=== PATIENT | female | born 2000 | race Caucasian/White ===

== ENCOUNTER → 2019-10-16 11:44 | Outpatient (CLI) | payer OTHER, SELFPAY ==
--- NOTE | 2019-10-16 11:55 | XR_ITS ---
PROCEDURE: XR THORACIC SPINE 3V CLINICAL INDICATION: ACUTE THORACIC MIDLINE BACK PAIN COMPARISON: No exams were available for comparison FINDINGS: There is no acute fracture dislocation or destructive lesion. The disc space heights are relatively preserved. IMPRESSION: No acute findings. Dictated by: Heraclio Chung 10/16/2019 13:30 Electronically signed by Heraclio Chung in [facility] 10/16/2019 13:30
[2019-10-16 12:51] LABS: Basophils # 0.1 K/mm3 (0-0.2); Basophils % 0.4 % (0.1-2.0); Eosinophils # 0.2 K/mm3 (0.0-0.4); Eosinophils % 1.8 % (0.1-12.0); Hematocrit 43.1 % (37.0-47.0); Hemoglobin 13.8 g/dL (12.2-16.2); Lymphocytes # 2.1 K/mm3 (0.7-4.5); Lymphocytes % 17.5 % (10-50); Mean Corpuscular HGB Conc 32.1 g/dL (31.8-35.4); Mean Corpuscular Hemoglobin 27.7 pg (27.0-31.2); Mean Corpuscular Volume 86.4 fl (81-99); Mean Platelet Volume 8.2 fl (7.4-10.4); Monocytes # 0.3 K/mm3 (0.1-1.0); Monocytes % 2.5 % (1.7-9.3); Neutrophils # 9.4 K/mm3 (1.8-7.8); Neutrophils % 77.8 % (37.0-80.0); Platelet Count 303 K/mm3 (142-424); Red Blood Count 4.99 M/mm3 (4.20-5.40); Red Cell Distribution Width 13.4 % (11.5-17.5)
[2019-10-16 14:44] LABS: Chloride 104 mmol/L (98-107)
[2019-10-16 14:45] LABS: Potassium 4.4 mmoL/L (3.5-5.1); Sodium 136 mmol/L (136-145)
[2019-10-16 14:48] LABS: Alanine Aminotransferase 9 U/L (12-78); Albumin Level 4.3 g/dl (3.5-5.0); Albumin/Globulin Ratio 1.4 (1.1-1.8); Alkaline Phosphatase 82 U/L (38-126); Anion Gap 16.4 mEq/L (5-15); Aspartate Amino Transferase 19 U/L (14-36); Bilirubin,Total 0.5 mg/dl (0.2-1.3); Blood Urea Nitrogen 8 mg/dl (7-17); Carbon Dioxide 20 mmol/L (22.0-30.0); Estimated Glomerular Filt Rate 127 ml/min (>60); GFR (African American) 154 ML/MIN (>60); Globulin 3.1 g/dL (1.3-3.2); Glucose 75 mg/dl (74-100); Total Protein,Serum 7.4 g/dl (6.3-8.2)
[2019-10-16 15:16] LABS: Thyroid Stimulating Hormone 0.49 uIU/mL (0.465-4.68)
[2019-10-17 08:45] LABS: Vitamin D 25 Hydroxy 31.8 ng/mL (30.0-100.0)
[2019-10-17 16:05] LABS: Vitamin B12 239 pg/mL (232-1245)
== END ==
PROVIDERS: PCP Nurse Practitioner Family; Visit Provider Nurse Practitioner Family
DX: M54.6 Pain in thoracic spine (principal); R53.83 Other fatigue
CPT/HCPCS: 36415; 72072; 80053; 82607; 82652; 84443; 85025

== ENCOUNTER → 2020-04-29 15:31 | Outpatient (CLI) | payer OTHER, SELFPAY ==
--- NOTE | 2020-04-29 15:48 | XR_ITS ---
PROCEDURE: XR CHEST 2V CLINICAL HISTORY: SOB COMPARISON: CR CXR CHEST(2 VIEWS-NOT PORTABLE) from 08/26/2012 CR CXR CHEST(2 VIEWS-NOT PORTABLE) from 02/10/2017 FINDINGS: The cardiomediastinal silhouette and pulmonary vascularity are within normal limits. The lungs are clear without infiltrates, suspicious nodules, or pleural effusions. No acute bony abnormalities. IMPRESSION: No acute findings. Dictated by: Luis Alberto Grant MD 04/29/2020 16:14 Luis Alberto Grant MD in [facility] 04/29/2020 16:14
[2020-04-29 16:00] LABS: Basophils % 0.3 % (0.1-2.0); Eosinophils # 0.5 K/mm3 (0.0-0.4); Eosinophils % 4.1 % (0.1-12.0); Hematocrit 39.3 % (37.0-47.0); Hemoglobin 13.9 g/dL (12.2-16.2); Lymphocytes # 4.4 K/mm3 (0.7-4.5); Lymphocytes % 33.7 % (10-50); Mean Corpuscular HGB Conc 35.3 g/dL (31.8-35.4); Mean Corpuscular Hemoglobin 29.9 pg (27.0-31.2); Mean Corpuscular Volume 84.7 fl (81-99); Mean Platelet Volume 8.3 fl (7.4-10.4); Monocytes # 0.3 K/mm3 (0.1-1.0); Monocytes % 2.2 % (1.7-9.3); Neutrophils # 7.8 K/mm3 (1.8-7.8); Neutrophils % 59.7 % (37.0-80.0); Platelet Count 250 K/mm3 (142-424); Red Blood Count 4.64 M/mm3 (4.20-5.40); Red Cell Distribution Width 12.7 % (11.5-17.5); White Blood Count 13.1 K/mm3 (4.8-10.8)
[2020-04-29 16:37] LABS: Chloride 109 mmol/L (98-107); Potassium 4.2 mmoL/L (3.5-5.1); Sodium 140 mmol/L (136-145)
[2020-04-29 16:40] LABS: Alanine Aminotransferase 15 U/L (12-78); Albumin/Globulin Ratio 1.4 (1.1-1.8); Alkaline Phosphatase 74 U/L (38-126); Anion Gap 16.2 mEq/L (5-15); Aspartate Amino Transferase 19 U/L (14-36); Bilirubin,Total 0.4 mg/dl (0.2-1.3); Blood Urea Nitrogen 7 mg/dl (7-17); Calcium 10.1 mg/dl (8.4-10.2); Carbon Dioxide 19 mmol/L (22.0-30.0); Estimated Glomerular Filt Rate 156 ml/min (>60); GFR (African American) 188 ML/MIN (>60); Globulin 2.8 g/dL (1.3-3.2); Glucose 117 mg/dl (74-100); Total Protein,Serum 6.8 g/dl (6.3-8.2)
[2020-04-29 16:46] LABS: C-Reactive Protein 11.3 mg/L (0-4)
[2020-04-29 16:57] LABS: Free T4 (Free Thyroxine) 1.05 ng/dl (0.78-2.19)
[2020-04-29 16:58] LABS: 25-OH Vitamin D, Total 47.2 ng/mL (30-100)
[2020-04-29 17:12] LABS: Thyroid Stimulating Hormone 0.71 uIU/mL (0.465-4.68)
[2020-04-29 18:10] LABS: Vitamin B12 259 pg/mL (239-931)
[2020-05-11 11:46] LABS: Antinuclear Antibodies (ANA) Negative
== END ==
PROVIDERS: PCP Nurse Practitioner Family; Visit Provider Nurse Practitioner Family
DX: R06.02 Shortness of breath (principal); R53.83 Other fatigue; R20.2 Paresthesia of skin
CPT/HCPCS: 36415; 71046; 80053; 82306; 82607; 83735; 84439; 84443; 85025; 86038; 86140

== ENCOUNTER → 2021-02-11 12:39 | Outpatient (CLI) | payer OTHER, SELFPAY ==
--- NOTE | 2021-02-11 | XR_ITS ---
PROCEDURE INFORMATION: Exam: XR Chest Exam date and time: 02/11/2021 12:00 AM Age: 20 years old Clinical indication: Right-sided; Patient HX: Right sided chest pain---. Non-smoker--- TECHNIQUE: Imaging protocol: XR of the chest. Views: 2 views. COMPARISON: CR XR CHEST 2V 04/29/2020 3:55 PM FINDINGS: Lungs: Unremarkable. No consolidation. Pleural spaces: Unremarkable. No pleural effusion. No pneumothorax. Heart/Mediastinum: Unremarkable. No cardiomegaly. Bones/joints: Unremarkable. IMPRESSION: No acute findings.
== END ==
PROVIDERS: PCP Nurse Practitioner Family; Visit Provider Nurse Practitioner Family
DX: R07.9 Chest pain, unspecified (principal)
CPT/HCPCS: 71046

== ENCOUNTER 2021-09-30 09:07 | Emergency (ER) | payer BC, SELFPAY ==
[2021-09-30 09:10] VITALS: BP 151/86; PULSE 109; RESP 18; TEMP 38.3; O2SAT 99; BMI 34.2
[2021-09-30 09:40] LABS: UTC Influenza A Antigen Negative (Negative); UTC Influenza B Antigen Negative (Negative)
--- NOTE | 2021-09-30 09:40 | HMH.EDUTC ---
[facility] Disposition Clinical Impression: Strep pharyngitis Disposition: Home, Self-Care Condition on Discharge: Good Instructions: DI for Strep Throat Additional Instructions: Start antibiotics today be sure to take it as ordered with the full length of time although you should start feeling better in 24-48 hours. Change toothbrush and toothpaste 24-48 hours after starting antibiotics Tylenol or Motrin as needed for fever or pain Encourage fluids, water, Gatorade, Powerade, try cold fluids, popsicles, ice cream will make it feel better You are contagious for 24 hours. Avoid kissing anyone, no eating or drinking after anyone. You are contagious. Follow-up the ER for new or worsening symptoms or no noticeable improvement over the next 24-48 hours. Follow-up with PCP this week. Prescriptions: Azithromycin [Zithromax 250mg tab] 250 mg PO DIRECTED #6 tab Prescription Printed Referrals: Gloria Toscano MD [Primary Care Provider] - Time of Disposition: 09:46 Medical Decision Making - Ozzy Inquiry Pt receiving controlled substance: No Vital Signs: 09/30/21 09:10 Temperature 100.9 F H Temperature Source Oral Pulse Rate [Left Brachial] 109 H Respiratory Rate 18 Blood Pressure [Left Arm] 151/86 H Blood Pressure Mean [Left Arm] 107 Blood Pressure Source [Left Arm] Automatic Cuff Blood Pressure Position [Left Arm] Sitting 02 Sat by Pulse Oximetry 99 Oxygen Delivery Method Room Air - Lab Data Lab Results 09/30/21 09:24: Influenza Type A Ag Negative, Influenza Type B Ag Negative Orders (Tests/Meds): ORDERS Category Date Time Status Covid-19 Nasal PCR ([facility]) Routine Lab 09/30/21 09:24 Received Rapid Strep Scrn Group A [Strep Scrn Group A (Rapid)] Lab 09/30/21 09:24 Received Stat [facility] HPI - General Chief complaint: Urgent Treatment Center Stated complaint: body aches, h/a Time Seen by Provider: 09/30/21 09:40 Mode of Arrival: Ambulatory Source of Information: Patient Limitations: No Limitations Description of Symptoms (Recalled from Triage Doc. by RN): PATIENT C/O FEVER, BODY ACHES, SORE THROAT, AND BILATERAL EAR PAIN SINCE YESTERDAY HEENT Symptoms (Recalled from RN notes): Yes Resp Symptoms (Recalled from RN notes): No Skin Symptoms (Recalled from RN notes): No MS Symptoms (Recalled from RN notes): No Functional Status (Recalled from RN notes): WNL - History of Present Illness Provider Complaint: 21 yr old female presents for sore throat,fever, body aches and shaista ear pain since yesterday. no ill contacts - Related Data Home Medications Medication Instructions Recorded Confirmed norethindrone 1.5 mg-ethinyl 1 tab PO DAILY 11/09/19 09/30/21 estradiol 30 mcg(21)/iron 75 mg(7) tablet Previous Rx's Medication Instructions Recorded Azithromycin [Zithromax 250mg 250 mg PO DIRECTED #6 tab 09/30/21 tab] Allergies Allergy/AdvReac Type Severity Reaction Status Date / Time No Known Allergies Allergy Verified 09/30/21 09:40 - Worker's Comp Is this a Worker's Comp case?: No [facility] History - Hepatitis A Screen Drug use history?: No High risk sexual behaviors?: No History of sexually transmitted infection?: No Currently employed?: No Childcare worker?: No Do you have indoor plumbing?: Yes Do you have electricity?: Yes Attestation statement:: This patient has been screened for Hepatitis A risk factors. I have reviewed the patient's past medical history: Yes Laterality Cases: Bilateral: Tonsillectomy, Total Hip Replacement - Social History Smoking Status: Current every day smoker # Packs/Day (cigarettes): 1 Alcohol Intake: never Substance Use Type: denies use Occupational Status: other ROS Obtained: Yes Systems reviewed as appropriate & no additional complaints - Constitutional Constitutional: Reports system reviewed and no additional complaints, except as docu, Reports body ache, Reports fever(s) - Eyes Eyes: Reports system review
[2021-09-30 09:42] LABS: Strep Scrn Group A (Rapid) Negative (Negative)
[2021-09-30 09:45] VITALS: BP 151/86; PULSE 109; RESP 18; TEMP 38.3; O2SAT 99
== END 2021-09-30 09:53 | disposition home or self-care (01) ==
PROVIDERS: Emergency Provider Nurse Practitioner Family; PCP Family Medicine
DX: J02.0 Streptococcal pharyngitis (principal); F17.210 Nicotine dependence, cigarettes, uncomplicated; U07.1 COVID-19
CPT/HCPCS: 87430; 87804; 99203; C9803; G0463; U0003; U0005

== ENCOUNTER → 2023-05-24 11:57 | Outpatient (CLI) | payer BC, SELFPAY ==
--- NOTE | 2023-05-24 12:04 | XR_ITS ---
FINAL REPORT CLINICAL HISTORY: intermittent sternal chest pain COMPARISON: 02/11/2021 FINDINGS: PA and lateral views of the chest were obtained. The cardiac and mediastinal silhouettes are within normal limits. The lungs are clear. There is no pleural effusion or pneumothorax. No acute osseous abnormality is identified. IMPRESSION: No radiographic evidence of acute cardiac or pulmonary disease. Reviewed, Interpreted and Dictated by Zee Jacques MD Transcribed by Rachelle Nixon Authenticated and [facility]
== END ==
PROVIDERS: PCP Nurse Practitioner Family; Visit Provider Nurse Practitioner Family
DX: J45.909 Unspecified asthma, uncomplicated (principal); R07.89 Other chest pain; J82.83 Eosinophilic asthma
CPT/HCPCS: 71046

== ENCOUNTER 2023-08-28 13:36 | Outpatient (CLI) | payer BC, SELFPAY ==
[2023-08-28 12:56] LABS: Basophils # 0.1 K/mm3 (0-0.2); Basophils % 0.7 % (0.1-2.0); Eosinophils # 0.2 K/mm3 (0.0-0.4); Eosinophils % 2.1 % (0.1-12.0); Hematocrit 45.6 % (37.0-47.0); Hemoglobin 15.3 g/dL (12.2-16.2); Lymphocytes # 2.8 K/mm3 (0.7-4.5); Lymphocytes % 31.2 % (10-50); Mean Corpuscular HGB Conc 33.5 g/dL (31.8-35.4); Mean Corpuscular Hemoglobin 30.6 pg (27.0-31.2); Mean Corpuscular Volume 91.3 fl (81-99); Mean Platelet Volume 9.3 fl (7.4-10.4); Monocytes # 0.3 K/mm3 (0.1-1.0); Monocytes % 3.4 % (1.7-9.3); Neutrophils # 5.6 K/mm3 (1.8-7.8); Neutrophils % 62.7 % (37.0-80.0); Platelet Count 242 K/mm3 (142-424); Red Cell Distribution Width 12.8 % (11.5-17.5); White Blood Count 8.8 K/mm3 (4.8-10.8)
[2023-08-28 13:17] LABS: Alanine Aminotransferase 33 U/L (12-78); Albumin Level 4.2 g/dl (3.5-5.0); Albumin/Globulin Ratio 1.5 (1.1-1.8); Alkaline Phosphatase 67 U/L (38-126); Anion Gap 12.9 mEq/L (5-15); Aspartate Amino Transferase 35 U/L (14-36); Bilirubin,Total 0.5 mg/dl (0.2-1.3); Blood Urea Nitrogen 7 mg/dl (7-17); Calcium 9.2 mg/dl (8.4-10.2); Carbon Dioxide 18 mmol/L (22.0-30.0); Chloride 108 mmol/L (98-107); Chol/HDL Ratio 3.8 (1-3.5); Cholesterol 240 mg/dl (140-200); Estimated Glomerular Filt Rate 123 ml/min (>60); GFR (African American) 149 ML/MIN (>60); Globulin 2.8 g/dL (1.3-3.2); Glucose 128 mg/dl (74-100); HDL Cholesterol 63 mg/dl (40-60); Magnesium 1.9 mg/dl (1.6-2.3); Potassium 3.9 mmoL/L (3.5-5.1); Sodium 135 mmol/L (136-145); Triglycerides 87 mg/dl (30-150); VLDL Cholesterol 17 mg/dL (0-40)
[2023-08-28 13:29] LABS: C-Reactive Protein 5.3 mg/L (0-4); Direct LDL Cholesterol 145.68 mg/dL (100-129)
[2023-08-28 13:40] LABS: 25-OH Vitamin D, Total 46.9 ng/mL (30-100)
[2023-08-28 13:48] LABS: Thyroid Stimulating Hormone 0.44 uIU/mL (0.465-4.68)
== END 2023-08-28 23:59 ==
PROVIDERS: PCP Nurse Practitioner Family; Visit Provider Nurse Practitioner Family
DX: R07.89 Other chest pain (principal); R79.89 Other specified abnormal findings of blood chemistry; E66.9 Obesity, unspecified; Z68.34 Body mass index [BMI] 34.0-34.9, adult; Z79.899 Other long term (current) drug therapy
CPT/HCPCS: 80053; 80061; 82306; 83735; 84443; 85025; 86140

== ENCOUNTER 2023-10-15 15:01 | Outpatient (CLI) | payer BC, SELFPAY ==
[2023-10-15 15:02] LABS: Coronavirus 19, PCR Not Detected (NotDetected); Influenza A, PCR Not Detected (NotDetected); Influenza B, PCR Not Detected (NotDetected)
== END 2023-10-15 23:59 ==
LOC: LAB.DROPOF 15:02
PROVIDERS: PCP Nurse Practitioner Family; Visit Provider Nurse Practitioner Family
DX: R05.1 Acute cough (principal); R51.9 Headache, unspecified; H92.01 Otalgia, right ear; R09.89 Other specified symptoms and signs involving the circulatory and respiratory systems
CPT/HCPCS: 87636

== ENCOUNTER 2023-11-21 10:04 | Outpatient (CLI) | payer BC, SELFPAY | END 2023-11-21 23:59 | LOC: RT 10:05 | PROVIDERS: PCP Nurse Practitioner Family; Visit Provider Physician Assistant | DX: R00.2 Palpitations (principal); R55 Syncope and collapse; R53.83 Other fatigue; R40.0 Somnolence; Z82.49 Family history of ischemic heart disease and other diseases of the circulatory system | CPT/HCPCS: 93270 ==

== ENCOUNTER 2023-12-06 10:52 | Outpatient (CLI) | payer BC, SELFPAY ==
--- NOTE | 2023-12-06 10:52 | CA_ITS ---
APPROVED REPORT EXAM: Comprehensive 2D, Doppler, and color-flow Echocardiogram [employer]: Rupal Pizarro CRT Ht: 5 ft 5 in Wt: 214lbs BSA: 2.04 BP: 133/84 mmHg Indications: Palpitations, SMOKER, FAMILY HX, PRE SYNCOPE 2D Dimensions LA Volume 30.00 mL LA Volume Index 14.40 mL/m2 (M/F) 16-34 M-Mode Dimensions RVDd 2.44 cm (0.9-2.6) LA Diam 2.94 cm (1.9-4.0) LVDd 4.93 cm (3.5-5.7) LVDs 3.54 cm (3.5-5.7) IVSd 1.10 cm (0.6-1.1) PWd 0.81 cm (0.6-1.1) EF (Teich) 54.30% FS 28.20% EDV (Teich) 114.40 mL TAPSE 2.74 (<1.7) ESV (Teich) 52.30 mL LV Diastology E Decel Time 183 (160-240 msec) E/A Ratio 1.73 MED A' 7.60 cm/s LAT A' 8.00 cm/s Aortic Valve AO Peak GR. 9.30 mmHg Mitral Valve MV E Max Raffaele. 104.0 (40-130 cm/s) MV A Velocity 60.0 (40-130 cm/s) E/A Ratio 1.73 MV PHT 54.0 ms Pulmonary Valve PV Peak Velocity 86.0 (50-150 cm/s) Tricuspid Valve TR P. Velocity 202.00 cm/s RAP Estimate 10.00 mmHg RVSP 26.40 mmHg Left Ventricle The left ventricle is normal size. The left ventricular systolic function is normal. The left ventricular ejection fraction is within the normal range. There is normal left ventricular wall thickness. There is normal LV segmental wall motion. The left ventricular diastolic function is normal. LVEF is 55%. Right Ventricle The right ventricle is normal size. The right ventricular systolic function is normal. Atria The left atrium size is normal. The right atrium size is normal. There is no Doppler evidence of interatrial shunt. Aortic Valve The aortic valve opens well. There is no aortic valvular stenosis. No aortic regurgitation is present. Mitral Valve The mitral valve is normal in structure. No evidence of mitral valve stenosis. There is no mitral valve regurgitation noted. Tricuspid Valve The tricuspid valve leaflets are thin and pliable. Trace tricuspid regurgitation. There is insufficient TR jet to estimate RVSP. Pulmonic Valve The pulmonary valve is normal in structure. Trace pulmonic regurgitation. Great Vessels The aortic root is normal in size. The ascending aorta is not well visualized. IVC is normal in size and collapses >50% with inspiration. Pericardium There is no pericardial effusion. Other Information Study Quality: Fair Conclusion Normal biventricular systolic function. No significant valvular stenosis or regurgitation. Electronically signed by : Conchita Vyas MD 12/09/2023 13:17:39
== END 2023-12-06 23:59 ==
LOC: RT 10:52
PROVIDERS: PCP Nurse Practitioner Family; Visit Provider Physician Assistant
DX: R55 Syncope and collapse (principal); R00.2 Palpitations; R53.83 Other fatigue; R40.0 Somnolence; Z82.49 Family history of ischemic heart disease and other diseases of the circulatory system
CPT/HCPCS: 93306

== ENCOUNTER 2024-03-13 10:23 | Outpatient (CLI) | payer BC, SELFPAY ==
[2024-03-13 11:01] LABS: Basophils # 0.1 K/mm3 (0-0.2); Basophils % 1.5 % (0.1-2.0); Eosinophils # 0.4 K/mm3 (0.0-0.4); Hematocrit 46.1 % (37.0-47.0); Hemoglobin 14.9 g/dL (12.2-16.2); Lymphocytes % 34.8 % (10-50); Mean Corpuscular HGB Conc 32.4 g/dL (31.8-35.4); Mean Corpuscular Hemoglobin 29.4 pg (27.0-31.2); Mean Corpuscular Volume 90.9 fl (81-99); Mean Platelet Volume 8.4 fl (7.4-10.4); Monocytes # 0.3 K/mm3 (0.1-1.0); Monocytes % 3.2 % (1.7-9.3); Neutrophils # 4.9 K/mm3 (1.8-7.8); Neutrophils % 56.5 % (37.0-80.0); Platelet Count 239 K/mm3 (142-424); Red Blood Count 5.07 M/mm3 (4.20-5.40); Red Cell Distribution Width 13.3 % (11.5-17.5); White Blood Count 8.6 K/mm3 (4.8-10.8)
[2024-03-13 11:45] LABS: Magnesium 1.9 mg/dl (1.6-2.3)
[2024-03-13 12:03] LABS: T4 (Thyroxine) 12.6 ug/dl (5.53-11.0)
[2024-03-13 12:17] LABS: Thyroid Stimulating Hormone 0.52 uIU/mL (0.465-4.68)
[2024-03-13 12:21] LABS: Ferritin 86.9 ng/ml (6.24-137)
[2024-03-14 10:23] LABS: Thyroid Peroxidase Antibodies 10 IU/mL (0-34); Triiodothyronine (T3) Free 3.4 pg/mL (2.0-4.4)
[2024-03-16 15:10] LABS: Thyroglobulin Level <1.0 IU/mL (0.0-0.9)
[2024-03-17 13:14] LABS: Lyme B. burgdorferi PCR Blood Negative (Negative)
== END 2024-03-13 23:59 | disposition home or self-care (01) ==
LOC: LAB.DROPOF 10:23
PROVIDERS: PCP Nurse Practitioner Family; Visit Provider Nurse Practitioner Family
DX: R53.83 Other fatigue (principal); R07.89 Other chest pain; R06.02 Shortness of breath
CPT/HCPCS: 82728; 83735; 84436; 84443; 84481; 85025; 86376; 86800; 87476

== ENCOUNTER 2024-11-26 14:11 | Outpatient (CLI) | payer BC, SELFPAY ==
[2024-11-26 16:05] LABS: Erythrocyte Sedimentation Rate 16 mm/hr (0-20)
[2024-11-26 16:11] LABS: Alanine Aminotransferase 15 U/L (12-78); Albumin/Globulin Ratio 1.5 (1.1-1.8); Alkaline Phosphatase 70 U/L (38-126); Anion Gap 13.5 mEq/L (5-15); Aspartate Amino Transferase 20 U/L (14-36); Bilirubin,Total 0.4 mg/dl (0.2-1.3); Blood Urea Nitrogen 16 mg/dl (7-17); Calcium 9.4 mg/dl (8.4-10.2); Carbon Dioxide 24 mmol/L (22.0-30.0); Chloride 104 mmol/L (98-107); Estimated Glomerular Filt Rate 102 ml/min (>60); GFR (African American) 123 ML/MIN (>60); Globulin 2.7 g/dL (1.3-3.2); Glucose 76 mg/dl (74-100); Potassium 4.5 mmoL/L (3.5-5.1); Sodium 137 mmol/L (136-145); Total Protein,Serum 6.7 g/dl (6.3-8.2); Uric Acid 4.3 mg/dl (2.5-6.2)
[2024-11-26 16:27] LABS: 25-OH Vitamin D, Total 25.9 ng/mL (30-100)
[2024-11-26 16:28] LABS: Free T4 (Free Thyroxine) 1.13 ng/dl (0.78-2.19); T4 (Thyroxine) 10.9 ug/dl (5.53-11.0)
[2024-11-26 16:41] LABS: Thyroid Stimulating Hormone 0.71 uIU/mL (0.465-4.68)
[2024-11-26 17:01] LABS: Vitamin B12 266 pg/mL (239-931)
[2024-11-27 03:41] LABS: Thyroid Peroxidase Antibodies 10 IU/mL (0-34); Triiodothyronine (T3) Free 3.3 pg/mL (2.0-4.4)
[2024-11-27 08:14] LABS: RA Latex Turbid. <10.0 IU/mL (<14.0)
[2024-11-27 15:12] LABS: Thyroglobulin Level <1.0 IU/mL (0.0-0.9)
[2024-11-27 16:20] LABS: Antinuclear Antibodies, IFA Positive (.)
== END 2024-11-26 23:59 | disposition home or self-care (01) ==
LOC: LAB 14:11
PROVIDERS: PCP Nurse Practitioner Family; Visit Provider Nurse Practitioner Family
DX: R53.83 Other fatigue (principal); R79.89 Other specified abnormal findings of blood chemistry; M79.604 Pain in right leg; M79.605 Pain in left leg
CPT/HCPCS: 36415; 80053; 82306; 82607; 83036; 83735; 84436; 84439; 84443; 84481; 84550; 85651; 86038; 86376; 86431; 86800

== ENCOUNTER 2024-12-04 14:24 | Outpatient (CLI) | payer BC, SELFPAY ==
--- NOTE | 2024-12-04 | US_ITS ---
FINAL REPORT CLINICAL HISTORY: bilateral claudication, bilateral rest pain, family history of PAD COMPARISON: None FINDINGS: LOWER EXTREMITY SEGMENTAL PRESSURE MEASUREMENTS FINDINGS: Pressure indices are as follows: RIGHT LOWER EXTREMITY: Thigh: 1.14 Calf: 1.19 Ankle, posterior tibial artery: 1.26 Ankle, dorsalis pedis: 1.13 Toe: 0.96 ROXANN: 1.26 Comments: Within normal limits LEFT LOWER EXTREMITY: Thigh: 1.17 Calf: 1.10 Ankle, posterior tibial artery: 1.24 Ankle, dorsalis pedis: 1.17 Toe: 0.96 ROXANN: 1.24 Comments: Within normal limits IMPRESSION: No evidence of peripheral vascular disease in the bilateral lower extremities. Reviewed, Interpreted and Dictated by Joaquin Chatterjee MD Transcribed by Rosetta Marrero Authenticated and [facility]
== END 2024-12-04 23:59 | disposition home or self-care (01) ==
LOC: RT 14:25
PROVIDERS: PCP Nurse Practitioner Family; Visit Provider Nurse Practitioner Family
DX: M79.604 Pain in right leg (principal); M79.605 Pain in left leg
CPT/HCPCS: 93923

== ENCOUNTER 2024-12-28 13:24 | Outpatient (CLI) | payer BC, SELFPAY ==
--- NOTE | 2024-12-28 13:27 | XR_ITS ---
FINAL REPORT CLINICAL HISTORY: Foot Pain FINDINGS: AP, oblique and lateral views of the left foot were obtained. There is no prior exam for comparison. There is no acute fracture or dislocation. 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 The remaining joint spaces are preserved. Soft tissues are unremarkable. IMPRESSION: Early degenerative changes of the 1st MTP. No acute osseous abnormality of the left foot. Reviewed, Interpreted and Dictated by Zee Jacques MD Transcribed by Rosetta Marrero Authenticated and [facility]
--- NOTE | 2024-12-28 13:27 | XR_ITS ---
FINAL REPORT CLINICAL HISTORY: Foot Pain FINDINGS: AP, oblique and lateral views of the right foot were obtained. There is no prior exam for comparison. There is no acute fracture or dislocation. An accessory navicular is noted. The joint spaces are preserved. Soft tissues are unremarkable. IMPRESSION: No acute osseous abnormality of the right foot. Reviewed, Interpreted and Dictated by Zee Jacques MD Transcribed by Rosetta Marrero Authenticated and [facility]
== END 2024-12-28 23:59 | disposition home or self-care (01) ==
LOC: RAD 13:25
PROVIDERS: PCP Nurse Practitioner Family; Visit Provider Nurse Practitioner Family
DX: M19.072 Primary osteoarthritis, left ankle and foot (principal); M79.671 Pain in right foot
CPT/HCPCS: 73630